=== PATIENT | female | born 1975 | race Caucasian/White ===

== ENCOUNTER 2016-11-02 09:42 | Emergency (ER) | payer OTHER ==
[~2016-11-02] VITALS: Ht 165.1 cm; Wt 90.0 kg
[2016-11-02 09:45] VITALS: BP 169/117; PULSE 133; RESP 30; TEMP 98; O2SAT 88
[2016-11-02 10:17] VITALS: BP 145/93; PULSE 103; RESP 15; O2SAT 95
[2016-11-02 10:27] VITALS: BP 148/102; PULSE 100; RESP 15; O2SAT 95
--- NOTE | 2016-11-02 10:29 | PD ---
HPI Chief Complaint: Respiratory Distress Time Seen by Provider: 10:05 Travel History International Travel<30 days: No Contact w/Intl Traveler<30days: No Traveled to known affect area: No History of Present Illness HPI This is a 41-year-old female with history of asthma, who presents today with complaints of wheezing and cough. The patient denies any fevers, chills. She states she has clear phlegm when she coughs. There is no chest pain, chest pressure. There is no edema or swelling. She does continue to smoke when she "drinks". There are no other complaints time my examination. PFSH Past Medical History Asthma: Yes Respiratory: Yes (ASTHMA) Tetanus Vaccination: Never Vaccinated ?: Not LMP: 10/02/16 Social History Alcohol Use: Yes Tobacco Use: Yes Substance Use: No Allergies-Medications (Allergen,Severity, Reaction): Coded Allergies: No Known Allergies (Unverified , 11/02/16) Reported Meds & Prescriptions Reported Meds & Active Scripts Active Ventolin Hfa 18 GM Inh (Albuterol Sulfate) 90 Mcg/Act Aer 2 Puff INH Q6H PRN Guaifenesin-Codeine Liq 100-10 Mg/5 Ml Soln 10 Ml PO Q6H PRN Medrol Dosepak (Methylprednisolone) 4 Mg Dspk 4 Mg PO DIRECTED Per Pharmacist direction Zithromax Z-Casimiro (Azithromycin) 250 Mg Dspk 250 Mg PO DIRECTED 500 MG (2 tabs) day 1, then 1 tab days 2-5. Review of Systems Except as stated in HPI: all other systems reviewed are Neg General / Constitutional: No: Fever, Chills HENT: No: Headaches, Lightheadedness, Neck Pain Cardiovascular: No: Chest Pain or Discomfort, Palpitations Respiratory: Positive: Cough, Wheezing, No: Shortness of Breath Gastrointestinal: No: Nausea, Vomiting, Abdominal Pain Musculoskeletal: No: Myalgias, Weakness, Pain Neurologic: No: Weakness, Headache Physical Exam Narrative GENERAL: Well-nourished, well-developed patient. SKIN: Focused skin assessment warm/dry. HEAD: Normocephalic/atraumatic. EYES: No scleral icterus. No injection or drainage. NECK: Supple, trachea midline. No JVD or lymphadenopathy. CARDIOVASCULAR: Regular rate and rhythm without murmurs, gallops, or rubs. RESPIRATORY: Diffuse expiratory wheezes in all 4 lung metcalf. No Rales. GASTROINTESTINAL: Abdomen soft, non-tender, nondistended. MUSCULOSKELETAL: No cyanosis, or edema. NEUROLOGICAL: Awake and alert. Cranial nerves II through XII intact. Motor grossly within normal limits. Five out of 5 muscle strength in all muscle groups. Normal speech. Data Data Last Documented VS Vital Signs Date Time Temp Pulse Resp B/P Pulse Ox O2 Delivery O2 Flow Rate FiO2 11/02/16 10:27 100 15 148/102 95 Room Air 11/02/16 09:45 98.0 Orders Iv Access Insert/Monitor (11/02/16 10:16) Ecg Monitoring (11/02/16 10:16) Oximetry (11/02/16 10:16) Oxygen Administration (11/02/16 10:16) Chest, Single Ap (11/02/16 10:16) Sodium Chloride 0.9% Flush (Ns Flush) (11/02/16 10:30) Methylprednisolone So Succ Inj (Solumedr (11/02/16 10:30) Albuterol-Ipratropium Neb (Duoneb Neb) (11/02/16 10:30) Albuterol Neb (Albuterol Neb) (11/02/16 10:30) Clonidine (Catapres) (11/02/16 11:30) MDM Medical Decision Making Medical Screen Exam Complete: Yes Emergency Medical Condition: Yes Differential Diagnosis Asthma exacerbation versus pneumonia versus bronchitis Narrative Course 41-year-old female history bronchitis, tobacco use, who presents today with points of cough and wheezing. The patient had diffuse extra wheezes on exam. She's been treated with albuterol nebulizers and the first with Atrovent. She' s also given 125 mg of Solu-Medrol. Her blood pressure was initially elevated when she arrived. It is come back down into normal range. She'll be discharged with a Medrol Dosepak, Z-Casimiro, guaifenesin with codeine elixir for the cough. She also be given a albuterol MDI refill. Diagnosis Primary Impression: Acute exacerbation of chronic bronchitis Additional Impression: Tobacco use Additional Instructions: Stop smoking. Follow up with primary care physician. Routinely check her blood pressure when at the grocery store and record for when he follow up with a primary care physician. Med/Other Pt SpecificInfo: Prescription(s) given Scripts Albuterol 18 GM Inh (Ventolin Hfa 18 GM Inh)90 Mcg/Act Aer2 Puff INH Q6H PRN ( SHORTNESS OF BREATH) #1 INHALER Ref 0 Prov:Mikey Roche MD 11/02/16 Guaifenesin-Codeine Liq 100-10 Mg/5 Ml Soln10 Ml PO Q6H PRN (COUGH) #1 BOTTLE Ref 0 Prov:Mikey Roche MD 11/02/16 Methylprednisolone Dosepak (Medrol Dosepak)4 Mg Dspk4 Mg PO DIRECTED #1 DSPK Ref 0 Per Pharmacist direction Prov:Mikey Roche MD 11/02/16 Azithromycin (Zithromax Z-Casimiro)250 Mg [id number] Mg PO DIRECTED #1 DSPK Ref 0 500 MG (2 tabs) day 1, then 1 tab days 2-5. Prov:Mikey Roche MD 11/02/16 Disposition: 01 DISCHARGE HOME Condition: Stable Mikey Roche MD November 02, 2016 10:29
[2016-11-02] MEDS ORDERED: SODIUM CHLORIDE 0.9% FLUSH 10 ML FLUSH IVF PRN (10:30)
[2016-11-02] MEDS ORDERED: methylPREDNISolone SOD SUCC 125 MG/2 ML VIAL IVP ONE (10:30)
[2016-11-02] MEDS ORDERED: RESP: ALBUTEROL 2.5 MG/IPRATROPIUM 0.5 MG NEB (SCH) INH ONE (10:30)
[2016-11-02] MEDS: RESP: ALBUTEROL 2.5 MG/3 ML NEB (SCH) INH (10:34)
--- NOTE | 2016-11-02 10:48 | RADRPT ---
EXAM DATE/TIME: 11/02/2016 10:13 [facility] COMPARISON: No previous studies available for comparison. INDICATIONS : Short of breath. MEDICAL HISTORY : asthma SURGICAL HISTORY : None. ENCOUNTER: Initial ACUITY: 1 day PAIN SCORE: 0/10 LOCATION: Bilateral chest FINDINGS: A single view of the chest demonstrates the lungs to be symmetrically aerated without evidence of mas s, infiltrate or effusion. The cardiomediastinal contours are unremarkable. Osseous structures are intact. CONCLUSION: No acute cardiopulmonary process. Ajay Cruz MD on November 02, 2016 at 10:46 Board Certified Radiologist. This report was verified electronically.
[2016-11-02] MEDS ORDERED: cloNIDine HCL 0.2 MG TAB PO ONE (11:30)
[2016-11-02] MEDS ORDERED: GUAI100S5 PO (11:48)
[2016-11-02] MEDS ORDERED: MEDR4PAK PO (11:48)
[2016-11-02] MEDS ORDERED: ZITHTAB PO (11:48)
[2016-11-02] MEDS ORDERED: VENTAER INH (11:54)
[2016-11-02 12:35] VITALS: BP 143/96
== END 2016-11-02 12:55 | disposition home or self-care (01) ==
LOC: NEPC 09:42
DX: J42 Unspecified chronic bronchitis (principal); J45.909 Unspecified asthma, uncomplicated; Z72.0 Tobacco use
CPT/HCPCS: 71010; 94640; 94664; 96374; 99283; J2930; J7613